=== PATIENT | male | born 1950 | race Two or more races ===

== ENCOUNTER → 2024-05-18 | Outpatient (CLI) | payer MEDICARE ==
[2024-05-18 08:44] LABS: Basophils # (auto) 0 10 ^3/uL (0-0.2); Basophils % (auto) 0.3 % (0.0-2.0); Eosinophils # (auto) 0.1 10 ^3/uL (0-0.8); Hematocrit 42.8 % (41.0-53.0); Hemoglobin 14.5 g/dL (13.5-17.5); Lymphocytes % (auto) 22.5 % (10.0-50.0); Mean Corpuscular Hemoglobin 30.9 pg (28.0-32.0); Mean Corpuscular Hgb Conc. 33.9 g/dL (32.0-36.0); Monocytes # (auto) 0.4 10 ^3/uL (0-1.3); Monocytes % (auto) 9.7 % (0.0-12.0); Neutrophils # (auto) 2.9 10 ^3/uL (1.6-8.6); Neutrophils % (auto) 64.5 % (37.0-80.0); Nucleated Red Blood Cells % 0.2 %; Platelet Count (auto) 141 10^3/uL (140-450); Red Cell Distribution Width 14.3 % (11.8-14.3); White Blood Cell 4.5 10^3/uL (4.4-10.8)
[2024-05-18 08:58] LABS: Urine Bacteria FEW /hpf (None Seen); Urine Blood Negative /uL (Negative); Urine Clarity Clear (Clear); Urine Color Light-Yellow (Yellow); Urine Protein, UAD Negative (Negative); Urine Specific Gravity 1.021 (1.001-1.035); Urine Squamous Epithelial Cell FEW /hpf (<5); Urine Urobilinogen Normal (Negative); Urine WBC 60 /HPF (0-3); Urine pH 5.5 (5.0-9.0)
[2024-05-18 10:42] LABS: Alanine Aminotransferase 16 U/L (7-40); Alkaline Phosphatase 74 U/L (46-116); Anion Gap 7 (5-15); BUN/Creatinine Ratio 18.6 (10.0-20.0); Blood Urea Nitrogen 19 mg/dL (9-23); Carbon Dioxide 28 mmol/L (20-31); Chloride 106 mmol/L (98-107); Potassium 4.3 mmol/L (3.5-5.1); Sodium 141 mmol/L (136-145); Total Protein 7.5 g/dL (5.7-8.2)
[2024-05-18 10:43] LABS: Albumin 4.8 g/dL (3.2-4.8); Aspartate Aminotransferase 19 U/L (13-40); Bilirubin, Total 0.6 mg/dL (0.2-1.0)
[2024-05-18 10:47] LABS: Glucose 126 mg/dL (74-106)
[2024-05-18 16:43] LABS: Triglycerides 148 mg/dL (< 150)
[2024-05-18 16:44] LABS: LDL Cholesterol 94 mg/dL (< 100)
[2024-05-18 16:45] LABS: Cholesterol 174 mg/dL (< 200); HDL Cholesterol 55 mg/dL (40-59)
== END | disposition home or self-care (01) ==
LOC: LAB 08:26
PROVIDERS: ATTEND Internal Medicine
DX: E86.0 Dehydration (principal); Z13.6 Encounter for screening for cardiovascular disorders; R53.1 Weakness; R55 Syncope and collapse; E11.9 Type 2 diabetes mellitus without complications
CPT/HCPCS: 36415; 80053; 80061; 81001; 83036; 84439; 84443; 85025

== ENCOUNTER 2024-07-14 09:27 | Emergency (ER) | payer MEDICARE ==
[~2024-07-14] VITALS: Ht 172.7 cm; Wt 83.1 kg
--- NOTE | 2024-07-14 10:41 | ED.PDOC ---
History of Present Illness HPI Comments This is a 74 year old male presenting to the ED with chief complaint of generalized weakness and recurrent falls. Patient reports that he has been experiencing generalized weakness for the past 3 weeks with one recurrent fall each weak due to this. Patient relays that he feels more fatigued than usual. Patient states he visited his PCP today to discuss lab results and was told his thyroid levels were normal, but his blood glucose was high in the 200s. Patient notes that when discussing about his symptoms, he was advised to come to the ED for further evaluation. Patient notes that he goes back to [place] Wednesday night. Patient denies any N/V/D, abdominal pain, dizziness, headache, SOB, chest pain, or numbness/weakness/tingling of extremities. Chief Complaint: General Weakness Time Seen by MD: 10:38 Reviewed Notes: Nurses Notes, Medications, Allergies Allergies: Coded Allergies: Penicillins (Verified Allergy, Intermediate, 07/14/24) Information Source: Patient Mode of Arrival: Ambulatory Severity: Moderate Timing: Weeks Duration: Since onset Prehospital treatment: None Past Medical History PAST MEDICAL HISTORY: Cancer, CVA, DM, High Lipids, HTN Past Medical History (Other): Neuropathy Surgical History: CABG, Pacemaker Surgical History (Other): Thyroidectomy, Throat surgery, Left shoulder surgery Family History Family History: Reviewed,noncontributory to illness Social History Smoker: Non-Smoker, Quit Greater Than 1 Year Alcohol: Denies ETOH Use Drugs: Denies Drug Use Lives In: Home Constitutional: reports: fatigue, weakness; denies: chills, diaphoresis, fever, malaise, sweats, others EENTM: denies: blurred vision, double vision, ear bleeding, ear discharge, ear drainage, ear pain, ear ringing, eye pain, eye redness, hearing loss, mouth pain, mouth swelling, nasal discharge, nose bleeding, nose congestion, nose pain, photophobia, tearing, throat pain, throat swelling, voice changes, others Respiratory: denies: cough, hemoptysis, orthopnea, SOB at rest, shortness of breath, SOB with excertion, stridor, wheezing, others Cardiovascular: denies: chest pain, dizzy spells, diaphoresis, Dyspnea on exertion, edema, irregular heart beat, left arm pain, lightheadedness, palpitations, PND, syncope, others Gastrointestinal: denies: abdomen distended, abdominal pain, blood streaked bowels, constipated, diarrhea, dysphagia, difficulty swallowing, hematemesis, melena, nausea, poor appetite, poor fluid intake, rectal bleeding, rectal pain, vomiting, others Genitourinary: denies: burning, dysuria, flank pain, frequency, hematuria, incontinence, penile discharge, penile sore, pain, testicle pain, testicle swelling, urgency, others Neurological: denies: dizziness, fainting, headache, left sided numbness, left sided weakness, numbness, paresthesia, pre-existing deficit, right sided numbness, right sided weakness, seizure, speech problems, tingling, tremors, weakness, others Musculoskeletal: denies: back pain, gout, joint pain, joint swelling, muscle pain, muscle stiffness, neck pain, others Integumetry: denies: bruises, change in color, change in hair/nails, dryness, laceration, lesions, lumps, rash, wounds, others Allergic/Immunocompromised: denies: Difficulty Healing, Frequent Infections, Hives, Itching, others Hematologic/Lymphatic: denies: anemia, blood clots, easy bleeding, easy bruising, swollen glands, others Endocrine: denies: excessive hunger, excessive sweating, excessive thirst, excessive urination, flushing, intolerance to cold, intolerance to heat, unex plained weight gain, unexplained weight loss, others Psychiatric: denies: anxiety, bipolar disorder, depression, hopeless, panic disorder, schizophrenia, sleepless, suicidal, others All Other Systems: Reviewed and Negative Physical Exam General Appearance: No Apparent Distress HEENT: Pharynx Normal, TMs Normal, Other (Trach in place) Neck: Full Range of Motion, Non-Tender, Normal, Normal Inspection Respiratory: Chest Non-Tender, Lungs Clear, No Accessory Muscle Use, No Respiratory Distress, Normal Breath Sounds Cardiovascular: No Edema, No JVD, No Murmur, No Gallop, Normal Peripheral Pulses, Regular Rate/Rhythm, Other (Pacemaker in place) Breast Exam: Deferred Gastrointestinal: No Organomegaly, Non Tender, No Pulsatile Mass, Normal Bowel Sounds, Soft Genitalia: Deferred Pelvic: Deferred Rectal: Deferred Extremities: No calf tenderness, Normal capillary refill, Normal inspection, Normal range of motion, Non-tender, No pedal edema Musculoskeletal : Apperance: Normal Neurologic: Alert, project accountant II-XII nml as Tested, No Motor Deficits, Normal Affect, Normal Mood, No Sensory Deficits Cerebellar Function: Normal Reflexes: Normal Skin: Dry, Normal Color, Warm Lymphatic: No Adenopathy Was a procedure done? Was a procedure done?: No EKG EKG : Pulse Rate (adult): 61 [place]: Normal Cardiac Rhythm: Paced Block: None Hypertrophy: None ST: Normal Differential Dx Considerations may include: Generalized weakness, electrolyte imbalance, UTI X-Ray, Labs, Meds, VS Vital Signs Date Time Temp Pulse Resp B/P (MAP) Pulse Ox O2 Delivery O2 Flow Rate FiO2 07/14/24 11:42 76 18 100 Room Air 07/14/24 11:42 98.2 76 18 127/68 (87) 100 98.2 07/14/24 10:44 97.6 67 18 113/60 (77) 96 97.6 07/14/24 10:41 61 07/14/24 10:35 61 Lab Test 07/14/24 11:45 07/14/24 10:47 Range/Units Urine Color Light-yellow Yellow Urine Clarity Turbid H Clear Urine pH 5.5 5.0-9.0 Urine Specific [place] 1.016 1.001-1.035 Urine Protein Negative Negative Urine Ketones Negative Negative Urine Blood Negative Negative /uL Urine Nitrite 2+ H Negative Urine Bilirubin Negative Negative Urine Urobilinogen Normal Negative mg/dL Urine Leukocyte Esterase 3+ Negative /uL Urine RBC 3 0 - 3 /hpf Urine Microscopic WBC 104 H 0-3 /HPF Urine Squamous Epithelial Cells None seen <5 /hpf Urine Bacteria Few H None Seen /hpf Urine Mucus Few None Seen Urine Glucose Trace Normal mg/dL White Blood Count 4.4 4.4-10.8 10^3/uL Red Blood Count 4.87 4.5-5.90 10^6/uL Hemoglobin 14.6 13.5-17.5 g/dL Hematocrit 43.5 41.0-53.0 % Mean Corpuscular Volume 89.4 80.0-100.0 fL Mean Corpuscular Hemoglobin 30.0 28.0-32.0 pg Mean Corpuscular Hemoglobin Concent 33.6 32.0-36.0 g/dL Red Cell Distribution Width 14.0 11.8-14.3 % Platelet Count 152 140-450 10^3/uL Mean Platelet Volume 9.1 6.9-10.8 fL Neutrophils (%) (Auto) 69.7 37.0-80.0 % Lymphocytes (%) (Auto) 16.8 10.0-50.0 % Monocytes (%) (Auto) 10.8 0.0-12.0 % Eosinophils (%) (Auto) 2.5 0.0-7.0 % Basophils (%) (Auto) 0.2 0.0-2.0 % Neutrophils # (Auto) 3.0 1.6-8.6 10 ^3/uL Lymphocytes # (Auto) 0.7 0.4-5.4 10 ^3/uL Monocytes # (Auto) 0.5 0-1.3 10 ^3/uL Eosinophils # (Auto) 0.1 0-0.8 10 ^3/uL Basophils # (Auto) 0 0-0.2 10 ^3/uL Nucleated Red Blood Cells 0.2 % Sodium Level 141 136-145 mmol/L Potassium Level 3.9 3.5-5.1 mmol/L Chloride Level 106 98-107 mmol/L Carbon Dioxide Level 28 20-31 mmol/L Anion Gap 7 5-15 Blood Urea Nitrogen 17 9-23 mg/dL Creatinine 0.99 0.700-1.30 mg/dL Glomerular Filtration Rate Calc 79 >90 mL/min BUN/Creatinine Ratio 17.2 10.0-20.0 Serum Glucose 106 74-106 mg/dL Calcium Level 9.3 8.7-10.4 mg/dL The patient has a CBC and chemistry which are within normal limits The urine test is positive for UTI At this time, the patient is being discharged on Cipro The patient was given Cipro 500 mg here in the emergency department's The patient's primary care physician came and actually saw the patient in the emergency department's and the patient will be discharged with the Cipro Time of 1ST Reevaluation: 12:37 Reevaluation 1ST: Improved Patient Education/Counseling: Diagnosis, Treatment, Prognosis, Need For Follow Up Family Education/Counseling: No Family Present Additional Information Reviewed patient's previous visit(s): None The following tests were ordered, and results were reviewed by me: EKG, CBC, BMP, UA Additional information was gathered from interviewing the following independent historian: NONE I reviewed and agreed with the following test results read by other provider: NONE I discussed treatments and results with medical personnel and: Patient Comprehensive systems review obtained and negative except for what is stated in the HPI. Departure 1 Departure Time of Disposition: 12:29 Impression: Primary Impression: UTI (urinary tract infection) Qualified Codes: N30.00 - Acute cystitis without hematuria Disposition: HOME / SELF CARE / HOMELESS Condition: Fair e-Prescriptions Ciprofloxacin Hcl (Cipro) 500 Mg Tab 1 TAB PO BID, #14 TAB Prov: VANCE CALDERON MD 07/14/24 Discharged With: Self Critical Care Note Critical Care Time?: No Stability Stability form required: No Heart Score Heart Score: Heart Score Response (Comments) Value History Slightly Suspicious 0 EKG Normal 0 Age >65 2 Risk Factors >3 or Hx ASHD 2 Troponin Normal limit 0 Total 4 I personally scribed for VANCE CALDERON MD ([email or web address]) on 07/14/24 at 10:40. Electronically submitted by Aaron Priest ([email or web address]). VANCE CALDERON MD Jul 14, 2024 10:40
[2024-07-14 11:06] LABS: Basophils # (auto) 0 10 ^3/uL (0-0.2); Basophils % (auto) 0.2 % (0.0-2.0); Eosinophils # (auto) 0.1 10 ^3/uL (0-0.8); Eosinophils % (auto) 2.5 % (0.0-7.0); Hematocrit 43.5 % (41.0-53.0); Hemoglobin 14.6 g/dL (13.5-17.5); Lymphocytes # (auto) 0.7 10 ^3/uL (0.4-5.4); Lymphocytes % (auto) 16.8 % (10.0-50.0); Mean Corpuscular Hgb Conc. 33.6 g/dL (32.0-36.0); Mean Corpuscular Volume 89.4 fL (80.0-100.0); Monocytes # (auto) 0.5 10 ^3/uL (0-1.3); Monocytes % (auto) 10.8 % (0.0-12.0); Neutrophils % (auto) 69.7 % (37.0-80.0); Nucleated Red Blood Cells % 0.2 %; Platelet Count (auto) 152 10^3/uL (140-450); Red Blood Cells 4.87 10^6/uL (4.5-5.90); White Blood Cell 4.4 10^3/uL (4.4-10.8)
[2024-07-14 11:15] LABS: Chloride 106 mmol/L (98-107); Potassium 3.9 mmol/L (3.5-5.1); Sodium 141 mmol/L (136-145)
[2024-07-14 11:16] LABS: Anion Gap 7 (5-15); Calcium 9.3 mg/dL (8.7-10.4); Carbon Dioxide 28 mmol/L (20-31)
[2024-07-14 11:21] LABS: BUN/Creatinine Ratio 17.2 (10.0-20.0); Blood Urea Nitrogen 17 mg/dL (9-23); Glucose 106 mg/dL (74-106)
[2024-07-14 12:08] LABS: Urine Bacteria FEW /hpf (None Seen); Urine Blood Negative /uL (Negative); Urine Clarity Turbid (Clear); Urine Color Light-Yellow (Yellow); Urine Mucus FEW (None Seen); Urine Protein, UAD Negative (Negative); Urine Specific Gravity 1.016 (1.001-1.035); Urine Squamous Epithelial Cell None Seen /hpf (<5); Urine Urobilinogen Normal (Negative); Urine WBC 104 /HPF (0-3); Urine pH 5.5 (5.0-9.0)
[2024-07-14] MEDS ORDERED: CIPR-173 PO (12:36)
[2024-07-14 12:38] VITALS: BP 142/75; PULSE 80; RESP 15; TEMP 97.9; O2SAT 96
[2024-07-14] MEDS: CIPROFLOXACIN HCL 500 MG TAB PO ONE (12:43)
--- NOTE | 2024-07-17 12:13 | ECG ---
[facility] Test Date: 2024-07-14 Test Time: 10:35:07 Pat Name: VALERIY WILKES Department: ER Room: Gender: M Clearance Rep: SOLOMON : 1950 Requested By: VANCE CALDERON Order Number: [id number] Reading MD: Measurements Intervals [place] Rate: 61 P: 0 DC: 132 QRS: -2 QRSD: 103 T: 22 QT: 401 QTc: 404 Interpretive Statements Atrial-paced rhythm Baseline wander in lead(s) II,aVF Please click the below link to view image of tracing.
== END 2024-07-14 12:54 | disposition home or self-care (01) ==
LOC: ER 09:27
DX: N39.0 Urinary tract infection, site not specified (principal); R29.6 Repeated falls; I10 Essential (primary) hypertension; E11.9 Type 2 diabetes mellitus without complications; E78.5 Hyperlipidemia, unspecified; Z90.89 Acquired absence of other organs; Z95.0 Presence of cardiac pacemaker; Z95.1 Presence of aortocoronary bypass graft; Z98.890 Other specified postprocedural states; Z88.0 Allergy status to penicillin
CPT/HCPCS: 36415; 80048; 81001; 82947; 82962; 85025; 93005

== ENCOUNTER 2024-12-27 07:28 | Outpatient (CLI) | payer MEDICARE ==
[~2024-12-27 07:28] MED LIST: CIPR-173 PO
[2024-12-27 08:34] LABS: Hematocrit 43.4 % (41.0-53.0); Hemoglobin 14.8 g/dL (13.5-17.5); Mean Corpuscular Hemoglobin 30.4 pg (28.0-32.0); Mean Corpuscular Volume 89.3 fL (80.0-100.0); Nucleated Red Blood Cells % 0.0 %
[2024-12-27 08:41] LABS: Urine Protein, UAD Negative (Negative)
[2024-12-27 08:51] LABS: Alanine Aminotransferase 17 U/L (7-40); Albumin 4.5 g/dL (3.2-4.8); Alkaline Phosphatase 81 U/L (46-116); Anion Gap 9 (5-15); BUN/Creatinine Ratio 11.4 (10.0-20.0); Blood Urea Nitrogen 12 mg/dL (9-23); Calcium 9.3 mg/dL (8.7-10.4); Carbon Dioxide 27 mmol/L (20-31); Chloride 106 mmol/L (98-107); Cholesterol 152 mg/dL (< 200); HDL Cholesterol 52 mg/dL (40-59); Potassium 4.4 mmol/L (3.5-5.1); Sodium 142 mmol/L (136-145); Total Protein 7.4 g/dL (5.7-8.2); Triglycerides 120 mg/dL (< 150)
[2024-12-27 08:52] LABS: Bilirubin, Total 0.7 mg/dL (0.2-1.0)
[2024-12-27 09:00] LABS: Glucose 137 mg/dL (74-106)
== END 2024-12-27 17:00 | disposition home or self-care (01) ==
LOC: LAB 07:28
PROVIDERS: ATTEND Internal Medicine
DX: I12.9 Hypertensive chronic kidney disease with stage 1 through stage 4 chronic kidney disease, or unspecified chronic kidney disease (principal); N18.2 Chronic kidney disease, stage 2 (mild); E03.9 Hypothyroidism, unspecified; Z00.01 Encounter for general adult medical examination with abnormal findings; Z13.1 Encounter for screening for diabetes mellitus
CPT/HCPCS: 36415; 80053; 80061; 81001; 83036; 84439; 84443; 85025